=== PATIENT | male | born 1965 | race Caucasian/White ===

== ENCOUNTER 2019-08-06 06:03 | Day surgery (SDC) | payer OTHER ==
[2019-08-05 15:05] VITALS: BMI 23.6
[2019-08-06] MEDS ORDERED: MIDAZOLAM HCL 2 MG/2 ML SINGLE DOSE VIAL ONE (07:02)
[2019-08-06] MEDS ORDERED: PROPOFOL 20 ML ONE ×2 (07:02→08:37)
[2019-08-06] MEDS ORDERED: LIDOCAINE HCL/PF 2% SDV 5ML VIAL ONE (07:02)
[2019-08-06] MEDS ORDERED: SUCCINYLCHOLINE CHLORIDE 200 MG/10 ML SYRINGE ONE (07:09)
[2019-08-06] MEDS ORDERED: BUPIVACAINE HCL/PF 2.5 MG/ML - 30 ML VIAL IJ ONE ×4 (07:28→09:27)
[2019-08-06] MEDS ORDERED: BUPIVACAINE HCL/EPINEPHRINE/PF 30 ML VIAL IJ ONE (07:28)
[2019-08-06] MEDS ORDERED: ceFAZolin SODIUM 1 GM VIAL ONE (08:20)
[2019-08-06] MEDS ORDERED: ONDANSETRON 4 MG/2 ML VIAL ONE (08:23)
[2019-08-06] MEDS ORDERED: DEXAMETHASONE SOD PHOSPHATE 4 MG/1 ML VIAL ONE (08:23)
[2019-08-06] MEDS ORDERED: KETOROLAC TROMETHAMINE 30 MG/1 ML VIAL ONE (08:23)
[2019-08-06] MEDS ORDERED: oxyCODONE HCL 5 MG TABLET PO PRN ×2 (10:08)
[2019-08-06] MEDS ORDERED: ACETAMINOPHEN 1000 MG/100 ML VIAL (NON FORMULARY) IVPB PRN (10:08)
[2019-08-06] MEDS ORDERED: ONDANSETRON 4 MG/2 ML VIAL IVPUSH PRN (10:08)
[2019-08-06] MEDS ORDERED: LACTATED RINGERS SOLUTION 1,000 ML IV SCH (10:15)
[2019-08-06] MEDS ORDERED: PROMETHAZINE HCL 25 MG/1 ML VIAL ONE (11:02)
--- NOTE | 2019-08-06 11:02 | OP ---
DATE OF OPERATION: 08/06/2019 Done at [facility] SURGEON: Valeria Cunningham MD ADDICTION SPECIALIST: LUIS Ferrera PREOPERATIVE DIAGNOSIS: Left elbow distal biceps rupture. PROCEDURE: Repair/re-insertion left distal biceps. FINDINGS: Avulsed biceps tendon split lengthwise. DESCRIPTION OF PROCEDURE: Informed consent was obtained. Patient was taken to the operating room where the left upper extremity was prepped and draped in a sterile fashion. Tourniquet was placed on the upper arm and inflated to 250 mmHg. Horizontal incision was made 2 cm distal to the elbow crease. Fascia was incised. There was noted to be bruising in the area, and the biceps tendon was identified. It was noted to be split along its length. This was then sewn together using No. 2 FiberWires creating 1 thicker tendon. Two interlocking [place] stitches were placed through the combined biceps tendon and secured to a ToggleLoc suture with a metal implant. The radial neck was identified. It was cleared of soft tissue. With the arm supinated, a ToggleLoc was placed after a 7-mm hole was drilled through the proximal cortex and a 4 mm through the distal cortex. ToggleLoc was inserted through both cortices, turned 90 degrees, and locked on the posterior cortex. Tensioning the biceps allowed for insertion of the biceps tendon into the 7-mm diameter insertion. This was then tied and held in place. Wound was irrigated with copious amounts of irrigation. The tourniquet was released. There was no evidence of active arterial bleeding. Later, a closure of 2-0 Vicryl and 3-0 Prolene was performed. Sterile dressing and splint were placed. Patient was transferred to recovery without complication. The PA listed above was present and assisted at surgery. Their presence was absolutely medically necessary for the completion of the procedure. They helped hold the arthroscopy, pass instruments (and implants when indicated) and the procedure could not have been completed without their assistance. VALERIA CUNNINGHAM M.D. [id number]
[2019-08-06 12:16] VITALS: BP 125/80; PULSE 84; TEMP 97.9
[2019-08-06] MEDS ORDERED: PROMETHAZINE HCL 25 MG/1 ML VIAL IVPUSH PRN (12:28)
== END 2019-08-06 12:16 | disposition home or self-care (01) ==
LOC: FASU 06:03
PROVIDERS: ATTEND Orthopaedic Surgery
PROC: 0LM40ZZ Reattachment of Left Upper Arm Tendon, Open Approach (ICD-10-PCS; principal; 2019-08-06 08:41)
DX: S46.211A Strain of muscle, fascia and tendon of other parts of biceps, right arm, initial encounter (principal); X58.XXXA Exposure to other specified factors, initial encounter; Y93.9 Activity, unspecified; Y92.9 Unspecified place or not applicable
CPT/HCPCS: 94760; J0131